=== PATIENT | female | born 1985 | race Caucasian/White ===

== ENCOUNTER → 2022-04-05 | Outpatient (CLI) | payer OTHER | LOC: KOH-I 09:44 | DX: M79.672 Pain in left foot (principal); M79.671 Pain in right foot | CPT/HCPCS: 73630 ==

== ENCOUNTER → 2022-06-21 | Outpatient (CLI) | payer OTHER | LOC: MRI 15:42 | DX: S86.012A Strain of left Achilles tendon, initial encounter (principal) | CPT/HCPCS: 73718 ==